=== PATIENT | male | born 1965 | race Asian ===

== ENCOUNTER 2017-01-05 02:08 | Emergency (ER) | payer OTHER ==
[~2017-01-05] VITALS: Ht 172.7 cm; Wt 102.0 kg
[2017-01-05 03:44] VITALS: BP 145/90
== END 2017-01-05 04:39 | disposition home or self-care (01) ==
LOC: EDBD 02:11 → EMS 02:11
DX: I10 Essential (primary) hypertension (principal)
CPT/HCPCS: 93005; 99283